=== PATIENT | male | born 1960 | race Caucasian/White ===

== ENCOUNTER 2020-07-07 12:00 | Emergency (ER) | payer MEDICAID ==
[~2020-07-07] VITALS: Ht 165.1 cm; Wt 81.6 kg
[2020-07-07 12:20] VITALS: BP 160/92; Ht 165.1 cm; Wt 81.6 kg
== END 2020-07-07 14:28 | disposition home or self-care (01) ==
LOC: ED 12:00
DX: R04.0 Epistaxis (principal)